=== PATIENT | male | born 1980 | race African-American/Black ===

== ENCOUNTER 2017-05-28 05:29 | Emergency (ER) | payer MEDICAID, OTHER ==
[~2017-05-28] VITALS: Ht 175.3 cm; Wt 104.3 kg
[2017-05-28 07:17] LABS: Basophils # (auto) 0.1 uL; Basophils % (auto) 0.8 % (0.0-2.0); Eosinophils # (auto) 0.2 uL; Eosinophils % (auto) 2.8 % (0.0-7.0); Hematocrit 41.6 % (41.0-53.0); Hemoglobin 13.8 g/dL (13.5-17.5); Lymphocytes # (auto) 2.1 uL; Mean Corpuscular Hgb Conc. 33.1 g/dL (32.0-36.0); Mean Corpuscular Volume 81.6 fL (80.0-100.0); Monocytes # (auto) 0.6 uL; Monocytes % (auto) 7.4 % (0.0-12.0); Neutrophils # (auto) 4.6 uL; Nucleated Red Blood Cells % 0.1 %; Platelet Count (auto) 293 10^3/uL (140-450); Red Blood Cells 5.09 10^6/uL (4.5-5.90); Red Cell Distribution Width 14.7 % (11.8-14.3); White Blood Cell 7.5 10^3/uL (4.4-10.8)
[2017-05-28 07:23] LABS: Albumin 3.6 g/dL (3.4-5.0); BUN/Creatinine Ratio 10.3; Bilirubin, Total 0.2 mg/dL (0.2-1.0); Calcium 8.5 mg/dL (8.5-10.1); Potassium 4.2 mmol/L (3.5-5.1); Total Protein 7.5 g/dL (6.4-8.2)
[2017-05-28 10:08] VITALS: BP 143/101
== END 2017-05-28 10:42 | disposition home or self-care (01) ==
LOC: ER 05:29 → EDBD 05:29 → ER 10:42
DX: R56.9 Unspecified convulsions (principal); Z53.21 Procedure and treatment not carried out due to patient leaving prior to being seen by health care provider
CPT/HCPCS: 36415; 80053; 80185; 80320; 85025; 94761

== ENCOUNTER 2017-09-09 12:39 | Emergency (ER) | payer MEDICAID ==
[~2017-09-09] VITALS: Ht 167.6 cm; Wt 89.4 kg
[2017-09-09 13:33] VITALS: BP 135/94
[2017-09-09] MEDS ORDERED: PROMETHAZINE W/CODEINE 5 ML ORAL SYRUP PO ONE (14:00)
== END 2017-09-09 14:34 | disposition home or self-care (01) ==
LOC: ER 12:39 → EDBD 12:39 → ER 14:34
DX: J20.9 Acute bronchitis, unspecified (principal); I10 Essential (primary) hypertension
CPT/HCPCS: 71046; 93005

== ENCOUNTER 2017-09-11 10:32 | Emergency (ER) | payer MEDICAID ==
[~2017-09-11] VITALS: Ht 180.3 cm; Wt 79.4 kg
[2017-09-11 10:55] VITALS: BP 149/101
== END 2017-09-11 11:18 | disposition home or self-care (01) ==
LOC: ER 10:32
DX: R05 Cough (principal); R09.81 Nasal congestion; I10 Essential (primary) hypertension; Z76.0 Encounter for issue of repeat prescription

== ENCOUNTER 2020-02-27 11:09 | Emergency (ER) | payer MEDICAID ==
[~2020-02-27] VITALS: Ht 182.9 cm; Wt 95.3 kg
[2020-02-27 11:24] VITALS: BP 140/80
== END 2020-02-27 13:55 | disposition left against medical advice (07) ==
LOC: EDUNIT# 11:09 → ER 11:09 → EDBD 11:09 → ER 13:55
DX: R56.9 Unspecified convulsions (principal); I10 Essential (primary) hypertension; F12.10 Cannabis abuse, uncomplicated
CPT/HCPCS: 70450; 99284; J1953; J7060

== ENCOUNTER 2020-03-06 09:37 | Emergency (ER) | payer MEDICAID ==
[~2020-03-06] VITALS: Ht 182.9 cm; Wt 83.9 kg
[2020-03-06] MEDS ORDERED: SODIUM CHLORIDE 0.9% 1,000 ML IVB ONE (09:45)
[2020-03-06] MEDS ORDERED: LORazepam 2MG/ML-1ML VIAL IV ONE (09:45)
[2020-03-06 10:23] LABS: Hematocrit 39.2 % (41.0-53.0); Hemoglobin 12.9 g/dL (13.5-17.5); Mean Corpuscular Hgb Conc. 32.8 g/dL (32.0-36.0); Mean Corpuscular Volume 82.2 fL (80.0-100.0); Platelet Count (auto) 396 10^3/uL (140-450); Red Blood Cells 4.77 10^6/uL (4.5-5.90); Red Cell Distribution Width 15.2 % (11.8-14.3); White Blood Cell 6.8 10^3/uL (4.4-10.8)
[2020-03-06 10:30] LABS: Band Neutrophils % (manual) 0; Basophils % (manual) 0 (0.0-2.0); Blast Cells 0; Metamyelocytes % 0; Promyelocytes % 0; Reactive Lymphocytes 0
[2020-03-06 10:41] LABS: Eosinophils % (manual) 1 (0-7); Lymphocytes % (manual) 36 (10.0-50.0); Monocytes % (manual) 8 (0-12); Myelocytes % 1
[2020-03-06 10:43] LABS: Albumin 3.3 g/dL (3.4-5.0); Calcium 8.5 mg/dL (8.5-10.1); Potassium 3.7 mmol/L (3.5-5.1)
[2020-03-06 10:47] LABS: Bilirubin, Total 0.1 mg/dL (0.2-1.0); Total Protein 6.8 g/dL (6.4-8.2)
[2020-03-06 12:00] VITALS: BP 154/92
== END 2020-03-06 13:08 | disposition home or self-care (01) ==
LOC: ER 09:37 → EDBD 09:37 → ER 13:08
DX: R56.9 Unspecified convulsions (principal); Z20.828 Contact with and (suspected) exposure to other viral communicable diseases
CPT/HCPCS: 36415; 80053; 80185; 85007; 85027; 87426; 96361; 96374; 99283; J1953; J2060; J7060